=== PATIENT | male | born 1975 | race Caucasian/White ===

== ENCOUNTER 2019-05-27 21:49 | Emergency (ER) | payer SELFPAY ==
[~2019-05-27] VITALS: Ht 175.3 cm; Wt 91.4 kg
[2019-05-27 21:51] VITALS: Ht 175.3 cm; Wt 91.4 kg
[2019-05-27] MEDS ORDERED: KETOROLAC 15 MG INJ IV STA (22:07)
[2019-05-27] MEDS ORDERED: ONDANSETRON 4 MG INJ IV STA (22:07)
[2019-05-27] MEDS ORDERED: SOD CHLORIDE 0.9% 1,000 ML IV STA (22:07)
[2019-05-27] MEDS ORDERED: LORAZEPAM 0.5 MG TAB PO ONE (22:30)
--- NOTE | 2019-05-27 22:38 | ERD ---
ER Documentation Chief Complaint Chief Complaint headache x 4 hours. denies vomiting or cp HPI This is a 44-year-old man who used methamphetamine earlier today and had a headache. He told triage she had a headache and was feeling anxious due to the methamphetamine use but upon my evaluation he states his headache resolved. He denies slurred speech, no chest pain or shortness of breath, no neck pain or stiffness, no paresis or paresthesias. ROS All systems reviewed and are negative except as per history of present illness. Allergies Allergies: Coded Allergies: No Known Drug Allergies (Verified Allergy, Unknown, 05/27/19) FmHx Family History: No diabetes Physical Exam Vitals Vital Signs Date Temp Pulse Resp B/P (MAP) Pulse Ox O2 O2 Flow FiO2 Time Delivery Rate 05/27/19 98.9 119 20 156/93 99 Room Air 23:40 (114) 05/27/19 100.2 139 18 190/97 99 21:51 (128) Physical Exam GENERAL: Well-developed, well-nourished, appears anxious, afebrile HEENT: Moist mucous membranes, pink conjunctiva, no cervical spine tenderness or step-off deformities, no goiter, no jaundice or icterus, extraocular movements intact without pain. No submandibular induration, and no pharyngeal erythema NEURO: Alert and oriented 3, cranial nerves II through XII intact bilaterally, pupils equal round reactive to light, no focal deficits or facial asymmetry, sensation intact distally Strength 5/5 in upper and lower extremities bilaterally CARDIAC: Tachycardic and regular, no murmurs rubs or gallops LUNGS: Clear bilaterally no wheezing crackles or stridor EXTREMITIES: No clubbing cyanosis or edema, calves are bilaterally symmetrical, no Homans sign, no popliteal cord sign. Distal pulses equal and bilateral PSYCH: Anxious Result Diagram: 05/27/19221805/27/192218 Results 24 hrs Laboratory Tests Test 05/27/19 22:19 White Blood Count 10.9 10^3/ul Red Blood Count 4.98 10^6/ul Hemoglobin 15.1 g/dl Hematocrit 44.1 % Mean Corpuscular Volume 88.6 fl Mean Corpuscular Hemoglobin 30.3 pg Mean Corpuscular Hemoglobin Concent 34.2 g/dl Red Cell Distribution Width 13.1 % Platelet Count 227 10^3/UL Mean Platelet Volume 10.1 fl Immature Granulocytes % 0.400 % Neutrophils % 67.6 % Lymphocytes % 22.9 % Monocytes % 8.6 % Eosinophils % 0.1 % Basophils % 0.4 % Nucleated Red Blood Cells % 0.0 /100WBC Immature Granulocytes # 0.040 10^3/ul Neutrophils # 7.4 10^3/ul Lymphocytes # 2.5 10^3/ul Monocytes # 0.9 10^3/ul Eosinophils # 0.0 10^3/ul Basophils # 0.0 10^3/ul Nucleated Red Blood Cells # 0.0 10^3/ul Sodium Level 144 mmol/L Potassium Level 3.5 mmol/L Chloride Level 107 mmol/L Carbon Dioxide Level 22 mmol/L Anion Gap 15 Blood Urea Nitrogen 15 mg/dl Creatinine 0.91 mg/dl Est Glomerular Filtrat Rate mL/min > 60 mL/min Glucose Level 120 mg/dl Calcium Level 9.7 mg/dl Total Bilirubin 0.4 mg/dl Direct Bilirubin 0.00 mg/dl Indirect Bilirubin 0.4 mg/dl Aspartate Amino Transf (AST/SGOT) 28 IU/L Alanine Aminotransferase (ALT/SGPT) 31 IU/L Alkaline Phosphatase 55 IU/L Troponin I 0.017 ng/ml Total Protein 7.6 g/dl Albumin 4.5 g/dl Globulin 3.10 g/dl Albumin/Globulin Ratio 1.45 Lipase 59 U/L Current Medications Medications Dose Sig/Laure Start Time Status Last (Trade) Ordered Route PRN Stop Time Admin Dose Reason Admin Lorazepam 0.5 mg ONCE ONCE 05/27/19 DC 05/27/19 (Ativan) PO 22:30 22:28 05/27/19 22:31 Sodium 1,000 ml @ Q1H STAT 05/27/19 DC 05/27/19 Chloride 1,000 mls/hr IV 22:07 22:28 05/27/19 23:06 Ondansetron 4 mg ONCE STAT 05/27/19 DC 05/27/19 HCl (Zofran IV 22:07 22:28 Inj) 05/27/19 22:09 Ketorolac 15 mg ONCE STAT 05/27/19 DC 05/27/19 Tromethamine IV 22:07 22:28 (Toradol) 05/27/19 22:09 Procedures/MDM IV line was established patient was placed on clinical research monitor rhythm strip r evealed a narrow complex tachycardia at 130 bpm with upright P and T waves. Patient was afebrile EKG performed, read by me revealed a sinus tachycardia at 138 bpm, normal axis, narrow QRS complex, no concerning ST elevations or depressions noted. I administered 1 L normal saline IV, Toradol 15 mg IV, Zofran 4 mg IV, lorazepam 0.5 mg p.o. x1 CBC and electrolytes were within normal limits, liver function test normal, troponin negative. Patient symptoms improved he states his anxiety improved and his tachycardia has also improved. He has no complaints at this time and states he feels much b miroslava. Differential diagnoses considered, included but not limited to acute coronary syndrome, pulmonary embolism, aortic dissection, abdominal aortic aneurysm, sepsis, stroke, meningitis, encephalitis, pneumonia, appendicitis, cholecystitis, bowel obstruction, pyelonephritis, nephrolithiasis, cystitis, as well as metabolic, hematologic, and electrolyte abnormalities. As well as abscess, cellulitis, fractures, and dislocations. Patient feels much better at this time, and vital signs are normal, symptoms have improved. I did give strict instructions to return to the ED if symptoms continue or worsen, patient will otherwise follow-up with primary care physician. Patient understood instructions and agreed to plan. Disclaimer: Inadvertent spelling and grammatical errors are likely due to [employer]/dictation software use and do not reflect on the overall quality of patient care. Also, please note that the electronic time recorded on this note does not necessarily reflect the actual time of the patient encounter. Departure Diagnosis: Primary Impression: Methamphetamine abuse Condition: Good NEDA TRIVEDI MD May 27, 2019 22:38
[2019-05-27 23:40] VITALS: BP 156/93; PULSE 119; RESP 20
== END 2019-05-27 23:42 | disposition home or self-care (01) ==
LOC: E/R 21:49
DX: F15.10 Other stimulant abuse, uncomplicated (principal)
CPT/HCPCS: 36415; 80053; 83690; 84484; 85025; 93005; 96374; 96375; 99284; J1885; J2405; J7030